=== PATIENT | female | born 1985 | race Two or more races ===

== ENCOUNTER 2023-09-22 15:06 | Inpatient (IN) | payer OTHER ==
[~2023-09-22] VITALS: Ht 297.2 cm; Wt 68.0 kg
[2023-09-22 21:26] LABS: INR 0.96; PARTIAL THROMBOPLASTIN TIME 29.3 SECONDS (22.0-34.0); PROTHROMBIN TIME 10.1 SECONDS (9.0-11.5)
[2023-09-22 21:33] LABS: HEMATOCRIT 45.1 % (36.0-45.00); HEMOGLOBIN 15.8 g/dL (12.0-15.00); MEAN CELL VOLUME 89.3 fL (80.00-100.00); MEAN CORPUSCULAR HEMOGLOBIN 31.3 pg (27.00-32.0); RED BLOOD COUNT 5.05 M/uL (4.00-6.00); RED CELL DISTRIBUTION WIDTH 12.8 % (11.5-14.5)
[2023-09-22 21:34] LABS: ALBUMIN 3.9 gm/dL (3.4-5.0); BILIRUBIN TOTAL 0.55 mg/dL (0.3-1.2); CREATININE SERUM 0.77 mg/dL (0.55-1.02); GFR 83.89; GLOBULINA 4.2 G/DL (2.4-3.5); POTASSIUM 3.73 mEq/L (3.5-5.1); TOTAL PROTEIN 8.1 gm/dL (6.4-8.2)
[2023-09-22 21:58] LABS: PLATELET COUNT 59 K/uL (150-450)
[2023-09-22 22:00] LABS: PLT IN CITRATE 48 K/uL (150-450)
[2023-09-23 06:26] LABS: PH,URINE 6.5 (5.0-8.0); URINE APPEARANCE Clear; URINE BILIRRUBIN Negative (NEGATIVE); URINE BLOOD Negative; URINE COLOR Yellow; URINE GLUCOSE Negative (NEGATIVE); URINE LEUKOCYTE Negative; URINE NITRATE Negative; URINE PROTEIN Negative (NEGATIVE); URINE UROBILINOGEN 0.2 E.U./dl
[2023-09-23 06:32] LABS: URINE BACTERIA 138.5 uL (0.0-1933); URINE RBC 3.1 uL (0.0-20.8); URINE WBC 2.1 uL (0.0-23.2)
[2023-09-23 10:01] LABS: ABG PH 7.405 (7.35-7.45); ABG pCO2 34.7 mmHg (35-45)
[2023-09-23 10:02] LABS: ABG PO2 108.8 mmHg (80-100); BASE EXCESS -2.7 mmol/l; BICARBONATE 21.3 mmol/l (23-25); SaO2 98.2 %; Tco2 22.3 mmol/l; allen test SATISFACTORY; o2 21 %; puncture site RADIAL RIGHT
[2023-09-24 06:17] LABS: HEMATOCRIT 34.2 % (36.0-45.00); HEMOGLOBIN 12.1 g/dL (12.0-15.00); MEAN CELL VOLUME 88.5 fL (80.00-100.00); MEAN CORPUSCULAR HEMOGLOBIN 31.4 pg (27.00-32.0); MEAN CORPUSCULAR HGB CONC 35.5 g/dl (32.0-36.0); RED BLOOD COUNT 3.87 M/uL (4.00-6.00); RED CELL DISTRIBUTION WIDTH 12.7 % (11.5-14.5)
[2023-09-24 06:53] LABS: PLATELET COUNT 54 K/uL (150-450)
[2023-09-25 09:32] LABS: HEMATOCRIT 37.5 % (36.0-45.00); HEMOGLOBIN 12.9 g/dL (12.0-15.00); MEAN CELL VOLUME 90.3 fL (80.00-100.00); MEAN CORPUSCULAR HEMOGLOBIN 31.1 pg (27.00-32.0); MEAN CORPUSCULAR HGB CONC 34.4 g/dl (32.0-36.0); RED BLOOD COUNT 4.15 M/uL (4.00-6.00); RED CELL DISTRIBUTION WIDTH 12.7 % (11.5-14.5)
[2023-09-25 09:58] LABS: PLATELET COUNT 77 K/uL (150-450)
[2023-09-25 10:02] LABS: MANUAL PLATELET COUNT 192
[2023-09-25 12:08] LABS: EBV EARLY AG IGG < 9.0 U/mL (0.0-8.9); ebv vca igg > 600.0 U/mL (0.0-17.9); vca igm ab < 36.0 U/mL (0.0-35.9)
== END 2023-09-25 16:16 | disposition home or self-care (01) | DRG 866 ==
LOC: ER 15:07 → MEDI 22:40
PROVIDERS: General Practice; Internal Medicine Infectious Disease; ADMIT Internal Medicine; ATTEND Internal Medicine
DX: A90 Dengue fever [classical dengue] (principal); K90.49 Malabsorption due to intolerance, not elsewhere classified; E86.0 Dehydration; E87.8 Other disorders of electrolyte and fluid balance, not elsewhere classified; D69.6 Thrombocytopenia, unspecified; L40.8 Other psoriasis